=== PATIENT | female | born 1945 | race Two or more races ===

== ENCOUNTER 2018-09-26 20:17 | Emergency (ER) | payer MEDICARE, MEDICAID ==
[~2018-09-26] VITALS: Ht 162.6 cm; Wt 74.8 kg
--- NOTE | 2018-09-26 20:25 | NUR ---
PT BIB RA. COMP OF 'FEELING PALPITATIONS" +N/V,. NO SOB NOTED. NO ACUTE DISTRESS AT THIS TIME. "I FEEL DIZZY AND NAUSEOUS". AWAITING MD DEJESUS.
--- NOTE | 2018-09-26 20:33 | NUR ---
RADIO AT BEDSIDE. LABS DRAWN.
[2018-09-26 20:51] LABS: BASOPHILS % (AUTO) 0.6 % (0.0-2.0); EOSINOPHILS % (AUTO) 0.3 % (0.0-6.0); HEMATOCRIT 45 % (33-45); HEMOGLOBIN 14.8 g/dL (11.5-14.8); LYMPHOCYTES # (AUTO) 2.5 /CMM (0.8-4.8); LYMPHOCYTES % (AUTO) 34.4 % (20.0-44.0); MEAN CORPUSCULAR HGB CONC 33 g/dl (31.0-36.0); MEAN CORPUSCULAR VOLUME 94 fL (82-100); MONOCYTES # (AUTO) 0.5 /CMM (0.1-1.30); MONOCYTES % (AUTO) 7.1 % (2.0-12.0); NEUTROPHILS # (AUTO) 4.1 /CMM (1.8-8.9); NEUTROPHILS % (AUTO) 57.6 % (43.0-81.0); PLATELET COUNT (AUTO) 178 /CMM (150-450); RED BLOOD CELL COUNT(AUTO) 4.83 MIL/uL (4.0-5.2); WHITE BLOOD COUNT (AUTO) 7.2 K/uL (4.3-11.0)
[2018-09-26 21:07] LABS: CALCIUM, SERUM 8.7 mg/dL (8.5-10.1); CARBON DIOXIDE 28 mmol/L (21-32); CHLORIDE 107 mmol/L (98-107); GLUCOSE 110 mg/dL (74-106); POTASSIUM 3.7 mmol/L (3.5-5.1); SODIUM SERUM 141 mmol/L (136-145); UREA NITROGEN, BLOOD 11 mg/dL (7-18)
[2018-09-26] MEDS ORDERED: hydrALAZINE HCL IV 20 MG VIAL IV ONE (21:30)
[2018-09-26 22:05] VITALS: BP 148/73
== END 2018-09-26 22:09 | disposition home or self-care (01) ==
LOC: ER 20:24
DX: I10 Essential (primary) hypertension (principal); I48.91 Unspecified atrial fibrillation; E03.9 Hypothyroidism, unspecified
CPT/HCPCS: 36415; 71045-TC; 80048-TC; 84484-TC; 85025-TC; 85730-TC

== ENCOUNTER 2019-07-20 20:33 | Inpatient (IN) | payer MEDICARE, MEDICAID ==
[~2019-07-20] VITALS: Ht 162.6 cm; Wt 68.0 kg
--- NOTE | 2019-07-20 20:48 | NUR ---
BIBA FOR C/O WEAKNESS AND NAUSEA. PT HAS BEEN HAVING CP FOR THE PAST 3 DAYS BUT DENIED CP AT THIS TIME.
--- NOTE | 2019-07-20 21:04 | NUR ---
X.RAY TECH AT THE BED SIDE. LAC 18G IV LINE STARTED. BLOOD DRAWN AND SENT TO THE LAB
[2019-07-20 21:07] LABS: BASOPHILS % (AUTO) 0.5 % (0.0-2.0); EOSINOPHILS % (AUTO) 0.4 % (0.0-6.0); HEMATOCRIT 41 % (33-45); HEMOGLOBIN 13.3 g/dL (11.5-14.8); LYMPHOCYTES # (AUTO) 2.3 /CMM (0.8-4.8); LYMPHOCYTES % (AUTO) 31.7 % (20.0-44.0); MEAN CORPUSCULAR HGB CONC 33 g/dl (31.0-36.0); MEAN CORPUSCULAR VOLUME 86 fL (82-100); MONOCYTES # (AUTO) 0.5 /CMM (0.1-1.30); MONOCYTES % (AUTO) 7.7 % (2.0-12.0); NEUTROPHILS # (AUTO) 4.2 /CMM (1.8-8.9); NEUTROPHILS % (AUTO) 59.7 % (43.0-81.0); PLATELET COUNT (AUTO) 199 /CMM (150-450); RED BLOOD CELL COUNT(AUTO) 4.75 MIL/uL (4.0-5.2); WHITE BLOOD COUNT (AUTO) 7.1 K/uL (4.3-11.0)
[2019-07-20 21:20] LABS: CALCIUM, SERUM 9.5 mg/dL (8.5-10.1); CARBON DIOXIDE 25 mmol/L (21-32); CHLORIDE 105 mmol/L (98-107); GLUCOSE 120 mg/dL (74-106); POTASSIUM 4.1 mmol/L (3.5-5.1); SODIUM SERUM 138 mmol/L (136-145); UREA NITROGEN, BLOOD 13 mg/dL (7-18)
--- NOTE | 2019-07-20 21:33 | NUR ---
BACK FROM CT
[2019-07-20 21:49] LABS: APPEARANCE,URINE Clear (CLEAR); BILIRUBIN,URINE Negative (NEGATIVE); BLOOD, URINE Negative Ery/uL (NEGATIVE); COLOR,URINE Yellow (YELLOW); KETONES,URINE Negative (NEGATIVE); LEUKOCYTE ESTERASE ,URINE Trace (NEGATIVE); NITRITE, URINE Negative (NEGATIVE); PH,URINE 7.5 (5.0-8.0); PROTEIN,URINE Negative (NEGATIVE); UGLUCOSE Negative (NEGATIVE); UROBILINOGEN,URINE 0.2 EU/dL (0.2)
[2019-07-20 21:53] LABS: BACTERIA,URINE Few /HPF (None Seen); RBC,URINE 0-2 /HPF (0-2); SQUAMOUS EPITHELIAL CELL,UR Few /HPF (None Seen)
[2019-07-20] MEDS ORDERED: FURO-144 PO (22:10)
[2019-07-20] MEDS ORDERED: PRAV20TA4 PO (22:10)
[2019-07-20] MEDS ORDERED: LOSA100T31 PO (22:10)
[2019-07-20] MEDS ORDERED: DORZ10DR13 EACHEYE (22:10)
[2019-07-20] MEDS ORDERED: DIGO125T PO (22:10)
[2019-07-20] MEDS ORDERED: AMLO5TAB9 PO (22:10)
[2019-07-20] MEDS ORDERED: RIVA10TA PO (22:10)
[2019-07-20] MEDS ORDERED: BIMA2.5D5 EACHEYE (22:10)
[2019-07-20] MEDS ORDERED: METO-358 PO (22:10)
[2019-07-20] MEDS ORDERED: AMIO200T4 PO (22:10)
[2019-07-20] MEDS ORDERED: LEVO75TA7 PO (22:10)
[2019-07-20] MEDS ORDERED: FERR325T23 PO (22:10)
--- NOTE | 2019-07-20 22:11 | NUR ---
ALEXI RAZA NP AT THE BED SIDE. MED RECON DONE BASE ON THE MED'S BOTTLE PROVIDED BY THE PT/ SON
--- NOTE | 2019-07-20 22:13 | NUR ---
CALLED HOUSE SUP FOR TELE BED.
[2019-07-20 22:21] LABS: THYROID STIMULATING HORMONE 4.572 uIU/mL (0.358-3.74)
--- NOTE | 2019-07-20 22:27 | NUR ---
CALLED FOR TELE BED
--- NOTE | 2019-07-20 22:29 | NUR ---
ROOM GIVEN 313-1 TELE
[2019-07-20] MEDS ORDERED: MECLIZINE HCL 12.5 MG TABLET PO PRN (22:30)
[2019-07-20] MEDS ORDERED: METOPROLOL SUCCINATE 50 MG TAB.SR.24H PO SCH (22:30)
[2019-07-20] MEDS ORDERED: ACETAMINOPHEN 325 MG TABLET PO PRN (22:30)
[2019-07-20] MEDS ORDERED: ONDANSETRON HCL/PF 4 MG/2 ML VIAL IVP PRN (22:30)
[2019-07-20] MEDS ORDERED: TEMAZEPAM 7.5 MG CAPSULE PO PRN (22:30)
[2019-07-20] MEDS ORDERED: MORPHINE SULFATE INJ 2 MG/ML DISP.SYRIN IV PRN (22:30)
--- NOTE | 2019-07-20 23:00 | NUR ---
REPORT GIVEN T OROSEMARY ON THIRD FLOOR FOR [facility]
[2019-07-20 23:01] VITALS: BP 142/87
--- NOTE | 2019-07-20 23:01 | NUR ---
tele saddle lining stitcher initial notes admit pt from ER via [facility] accompanied by ER nurse and deployment technician. DX of Syncope . pt is awake and alert Czech speaking , ambulatory with some assistance. denies any pain or any discomfort. Aware where she at and how to used the call light system. Tele A-fib per monitor. vital signs as FF BP 142/87, pulse 69, resp 18, temp 98,2 and o2 sat 99 %.kept her warm and comfortable at all times. place call light at reach. will continue monitoring.
--- NOTE | 2019-07-20 23:21 | NUR ---
PT WAS TRANSFERRED TO 313-1 UNDER ACLS
--- NOTE | 2019-07-21 01:44 | NUR ---
tele occupational health coordinator notes pt sleeping comfortably in bed without any distress noted. Tele A-fib per monitor. kept her warm and comfortable at all times. will continue monitoring. place call light at reach.
[2019-07-21 04:19] VITALS: BP 127/73
[2019-07-21 06:22] LABS: BASOPHILS % (AUTO) 0.5 % (0.0-2.0); EOSINOPHILS % (AUTO) 0.7 % (0.0-6.0); HEMATOCRIT 43 % (33-45); HEMOGLOBIN 13.6 g/dL (11.5-14.8); LYMPHOCYTES # (AUTO) 2.4 /CMM (0.8-4.8); LYMPHOCYTES % (AUTO) 32.2 % (20.0-44.0); MEAN CORPUSCULAR HGB CONC 32 g/dl (31.0-36.0); MEAN CORPUSCULAR VOLUME 86 fL (82-100); MONOCYTES # (AUTO) 0.7 /CMM (0.1-1.30); MONOCYTES % (AUTO) 9.6 % (2.0-12.0); NEUTROPHILS # (AUTO) 4.3 /CMM (1.8-8.9); PLATELET COUNT (AUTO) 194 /CMM (150-450); RED BLOOD CELL COUNT(AUTO) 4.97 MIL/uL (4.0-5.2); WHITE BLOOD COUNT (AUTO) 7.5 K/uL (4.3-11.0)
--- NOTE | 2019-07-21 06:30 | NUR ---
tele linking machine operator notes pt woke up and saying "Thank you " i slept good. vital signs stable since admission. Tele A-fib heart rate 66 per monitor. kept her warm and comfortable at all times. will continue monitoring.
[2019-07-21 06:47] LABS: CHOLESTEROL 191 mg/dL (<200); HDL CHOLESTEROL 44 mg/dL (40-60); LDL 118 mg/dL (0-99); TRIGLYCERIDES 174 mg/dL (30-150)
[2019-07-21 06:53] LABS: CARBON DIOXIDE 28 mmol/L (21-32); CHLORIDE 108 mmol/L (98-107); CREATININE 0.9 mg/dL (0.6-1.3); GLUCOSE 101 mg/dL (74-106); PHOSPHORUS 3.2 mg/dL (2.5-4.9); POTASSIUM 4.7 mmol/L (3.5-5.1); SODIUM SERUM 144 mmol/L (136-145); UREA NITROGEN, BLOOD 10 mg/dL (7-18)
--- NOTE | 2019-07-21 07:16 | NUR ---
Tele concrete rubber closing notes pt resting comfortably in bed without any pain or any discomfort. tele A-fib per monitor. stable barbie the night and slept well. endorse to am nurse for continuity of care. place call light at reach.
--- NOTE | 2019-07-21 07:30 | NUR ---
MEMBER OF CONGRESS NOTES PT IN BED, AWAKE, ALERT AND ORIENTED, NO COMPLAINT OF PAIN OR ANY DISCOMFORT, NOT IN DISTRESS, NO COMPLAINT OF DIZZINESS, REMINDED PT TO CALL FOR ASSISTANCE IF NEEDED, VERBALIZED UNDERSTANDING, CALL LIGHT WITHIN REACH, KEPT WARM AND COMFORTABLE IN BED.
[2019-07-21 08:00] VITALS: BP 130/82
[2019-07-21] MEDS ORDERED: LEVOTHYROXINE SODIUM 75 MCG TABLET PO SCH (09:00)
[2019-07-21] MEDS ORDERED: FERROUS SULFATE (325 MG) 325 MG/TAB TABLET PO SCH (09:00)
[2019-07-21] MEDS ORDERED: PRAVASTATIN SODIUM 20 MG TABLET PO SCH (09:00)
[2019-07-21] MEDS ORDERED: LOSARTAN POTASSIUM 25 MG TABLET PO SCH (09:00)
[2019-07-21] MEDS ORDERED: RIVAROXABAN 10 MG TABLET PO SCH (09:00)
[2019-07-21] MEDS ORDERED: BIMATOPROST 2.5 ML DROPS OP SCH (09:00)
[2019-07-21] MEDS ORDERED: DIGOXIN 0.125 MG TABLET PO SCH (09:00)
[2019-07-21] MEDS ORDERED: ATORVASTATIN 10 MG TABLET PO SCH ×2 (09:00→21:00)
[2019-07-21] MEDS ORDERED: AMLODIPINE BESYLATE 5 MG TABLET PO SCH (09:00)
[2019-07-21] MEDS ORDERED: FUROSEMIDE 40 MG TABLET PO SCH (09:00)
[2019-07-21] MEDS ORDERED: AMIODARONE HCL 200 MG TABLET PO SCH (09:00)
[2019-07-21 10:45] VITALS: BP_SYST 146; BP_SYST 148; BP_SYST 160; BP_DIAS 75; BP_DIAS 85; BP_DIAS 97
--- NOTE | 2019-07-21 13:00 | NUR ---
BRINEYARD SUPERVISOR NOTES PT IN BED, AWAKE, ALERT AND ORIENTED, NO COMPLAINT OF PAIN OR ANY DISCOMFORT, NOT IN DISTRESS, AMBULATES WITH STEADY GAIT, SEEN BY DR. MILES AND DR. MORENO, PLAN OF CARE DISCUSSED WITH PT AND FAMILY, DISCHARGE ORDER GIVEN BY MD, DISCHARGE AND MEDICATION INSTRUCTIONS PROVIDED TO PT AND FAMILY, VERBALIZED UNDERSTANDING, BELONGINGS ACCOUNTED FOR, ASSISTED PT TO HOSPITAL LOBBY VIA WHEELCHAIR, LEFT IN STABLE CONDITION VIA PRIVATE CAR WITH FAMILY.
[2019-07-21] MEDS ORDERED: TIMOLOL MAL/DORZOLAM HCL OPHTH 10 ML BOTTLE EACHEYE SCH (18:00)
--- NOTE | 2019-07-21 21:29 | NUR ---
Lives locally alone. She is ambulatory, has a walker as needed. She is independent with adl's. Patient was discharge home with good family support. . Addendum: 07/21/19 at 2129 by FAITH SCHAEFER RN Amended: Links added.
[2019-07-21] MEDS ORDERED: LATANOPROST EYE DROP 0.005% 2.5 ML BOTTLE OP SCH (22:00)
== END 2019-07-21 12:45 | disposition home or self-care (01) | DRG 149 ==
LOC: ER 20:35 → TELE 22:36
PROVIDERS: ADMIT Nurse Practitioner Acute Care; ATTEND Nurse Practitioner Acute Care
DX: H81.10 Benign paroxysmal vertigo, unspecified ear (principal); E03.9 Hypothyroidism, unspecified; I25.10 Atherosclerotic heart disease of native coronary artery without angina pectoris; E66.9 Obesity, unspecified; E78.5 Hyperlipidemia, unspecified; H40.9 Unspecified glaucoma; I48.91 Unspecified atrial fibrillation; Z68.25 Body mass index [BMI] 25.0-25.9, adult; Z98.84 Bariatric surgery status; I10 Essential (primary) hypertension
CPT/HCPCS: 36415; 70450-TC; 71045-TC; 80048-TC; 80061-TC; 80162-TC; 81000-TC; 83735-TC; 84100-TC; 84439-TC; 84443-TC; 84484-TC; 85025-TC; 87081-TC; 93307-TC; 93880-TC; 97116-TC; 97530-TC; A6253; A6403; G0378